=== PATIENT | male | born 1960 | race African-American/Black ===

== ENCOUNTER 2017-12-10 20:10 | Emergency (ER) | payer MEDICARE, MEDICAID ==
[~2017-12-10] VITALS: Ht 188 cm; Wt 86.0 kg
[2017-12-10 21:41] VITALS: BP 116/73
== END 2017-12-11 | disposition left against medical advice (07) ==
LOC: ER 22:24
DX: R10.9 Unspecified abdominal pain (principal); Z53.21 Procedure and treatment not carried out due to patient leaving prior to being seen by health care provider

== ENCOUNTER 2017-12-11 03:45 | Emergency (ER) | payer MEDICARE, MEDICAID ==
[~2017-12-11] VITALS: Ht 188 cm; Wt 86.0 kg
[2017-12-11] MEDS ORDERED: KETOROLAC 30MG/ML VIAL IV ONE (07:15)
[2017-12-11 07:29] LABS: BASOPHILS % 1.2 % (0.0-2.0); EOSINOPHILS % 5.5 % (0.0-5.0); HEMATOCRIT. 41.3 % (42.0-52.0); HEMOGLOBIN. 13.8 g/dL (14.0-18.0); LYMPHOCYTES % 48.9 % (20.0-50.0); MEAN CORPUSCULAR HEMOGLOBIN 29.7 pg (28.0-32.0); MEAN CORPUSCULAR VOLUME 89.2 fL (80.0-94.0); MEAN PLATELET VOLUME 8.6 fl (7.4-10.4); NEUTROPHILS % 32.4 % (40.0-76.0); PLATELET 216 x1000/uL (130-400); RED BLOOD CELL COUNT 4.63 mill/uL (4.7-6.1); RED CELL DISTRIBUTION WIDTH 16.6 % (11.6-14.6)
[2017-12-11 07:31] LABS: CHLORIDE 107 mEq/L (98-107)
[2017-12-11 07:37] LABS: ETHANOL BLOOD 104 mg/dL
[2017-12-11 08:17] LABS: CLARITY URINE CLEAR (CLEAR); COLOR URINE YELLOW (YELLOW); KETONES URINE NEGATIVE (NEGATIVE); LEUKOCYTE ESTERASE URINE NEGATIVE (NEGATIVE); NITRITE URINE NEGATIVE (NEGATIVE); OCCULT BLOOD URINE NEGATIVE (NEGATIVE); PH URINE 6.5 (4.5-8.0); PROTEIN URINE NEGATIVE (NEGATIVE); SPECIFIC GRAVITY URINE 1.013 (1.005-1.030); UROBILINOGEN URINE 0.2 E.U./dL (0.2-1.0)
[2017-12-11 08:32] LABS: *AMPHETAMINES SCREEN URINE NEGATIVE (NEGATIVE)
[2017-12-11 08:33] LABS: *BARBITURATES SCREEN URINE NEGATIVE (NEGATIVE); *BENZODIAZEPINES SCREEN URINE NEGATIVE (NEGATIVE); *COCAINE SCREEN URINE NEGATIVE (NEGATIVE)
[2017-12-11 08:34] LABS: METHADONE URINE SCREEN NEGATIVE (NEGATIVE); OPIATES URINE SCREEN NEGATIVE (NEGATIVE); PHENCYCLIDINE URINE SCREEN NEGATIVE (NEGATIVE)
[2017-12-11 08:50] LABS: CANNABINOID URINE SCREEN NEGATIVE (NEGATIVE)
[2017-12-11 09:13] VITALS: BP 118/91
[2017-12-11] MEDS ORDERED: IOHEXOL-300 100 ML BOTTLE ONE (09:36)
== END 2017-12-11 10:25 | disposition home or self-care (01) ==
LOC: ER 03:45
DX: R10.9 Unspecified abdominal pain (principal); M79.1 Myalgia; I25.2 Old myocardial infarction
CPT/HCPCS: 36415; 74177; 80053; 80305; 81003; 83690; 85025; 96374; 99285; G0482; J1885; Q9967

== ENCOUNTER 2018-01-01 02:27 | Emergency (ER) | payer MEDICARE, MEDICAID ==
[~2018-01-01] VITALS: Ht 188 cm; Wt 89.0 kg
[2018-01-01] MEDS ORDERED: ACETAMINOPHEN 325MG TABLET PO ONE (08:00)
[2018-01-01] MEDS ORDERED: DIAZEPAM 2 MG TABLET PO ONE (08:00)
[2018-01-01 08:55] VITALS: BP 129/94
== END 2018-01-01 09:00 | disposition home or self-care (01) ==
LOC: ER 02:27
DX: M54.41 Lumbago with sciatica, right side (principal); I25.2 Old myocardial infarction
CPT/HCPCS: 99283

== ENCOUNTER 2019-07-01 16:01 | Emergency (ER) | payer MEDICARE, MEDICAID ==
[~2019-07-01] VITALS: Ht 182.9 cm; Wt 82.0 kg
[2019-07-01] MEDS ORDERED: FUROSEMIDE 40MG/4ML VIAL IV ONE (17:15)
[2019-07-01] MEDS ORDERED: ASPIRIN 81MG TABLET PO ONE (17:15)
[2019-07-01] MEDS ORDERED: NITROGLYCERIN OINT 1GM/INCH UDPKT TD ONE (17:15)
[2019-07-01 17:28] LABS: BASOPHILS % 0.5 % (0.0-2.0); EOSINOPHILS % 0.2 % (0.0-5.0); HEMATOCRIT. 33.6 % (42.0-52.0); HEMOGLOBIN. 10.7 g/dL (14.0-18.0); LYMPHOCYTES % 17.5 % (20.0-50.0); MEAN CORPUSCULAR HEMOGLOBIN 26.4 pg (28.0-32.0); MEAN CORPUSCULAR VOLUME 82.8 fL (80.0-94.0); MEAN PLATELET VOLUME 10.8 fl (7.4-10.4); MONOCYTES % 11.5 % (2.0-8.0); NEUTROPHILS % 70.3 % (40.0-76.0); PLATELET 154 x1000/uL (130-400); RED BLOOD CELL COUNT 4.06 mill/uL (4.7-6.1); RED CELL DISTRIBUTION WIDTH 19.3 % (11.6-14.6)
[2019-07-01 17:39] LABS: CHLORIDE 107 mEq/L (98-107)
[2019-07-01 17:43] LABS: D-DIMER 6.65 mg/L FEU (<0.50); INR 1.8; PARTIAL THROMBOPLASTIN TIME 28.1 sec (23.4-31.0)
[2019-07-01] MEDS ORDERED: IOHEXOL-350 100 ML BOTTLE ONE (22:18)
[2019-07-02 02:32] VITALS: BP 130/93
== END 2019-07-02 02:53 | disposition short-term general hospital (02) ==
LOC: ER 16:39 → CANBEDREQ 07-02 01:23 → ER 07-02 02:53
DX: R06.02 Shortness of breath (principal); R06.09 Other forms of dyspnea; I50.9 Heart failure, unspecified; I25.2 Old myocardial infarction; I25.10 Atherosclerotic heart disease of native coronary artery without angina pectoris; Z98.890 Other specified postprocedural states; Z98.61 Coronary angioplasty status
CPT/HCPCS: 36415; 71045; 71275; 74177; 80053; 83880; 84484; 85025; 85379; 85610; 85730; 93005; 96374; 99284; J1940; Q9967

== ENCOUNTER 2021-01-05 10:39 | Emergency (ER) | payer OTHER, MEDICAID ==
[~2021-01-05] VITALS: Ht 185.4 cm; Wt 90.0 kg
[2021-01-05] MEDS ORDERED: HYDROCODONE/ACETAMINOPHEN 5/325MG TABLET PO STA (11:18)
[2021-01-05 11:28] VITALS: BP 100/68
[2021-01-05] MEDS ORDERED: BACITRACIN ZINC OINT UDPKT TOP NR (12:45)
[2021-01-05] MEDS ORDERED: T3 PO (12:53)
[2021-01-05] MEDS ORDERED: BO1 TP (12:55)
== END 2021-01-05 14:07 | disposition home or self-care (01) ==
LOC: ER 10:39
DX: S16.1XXA Strain of muscle, fascia and tendon at neck level, initial encounter (principal); S39.012A Strain of muscle, fascia and tendon of lower back, initial encounter; I25.2 Old myocardial infarction; V49.49XA Driver injured in collision with other motor vehicles in traffic accident, initial encounter; Y93.89 Activity, other specified; Y92.89 Other specified places as the place of occurrence of the external cause; Y99.8 Other external cause status; Z98.890 Other specified postprocedural states
CPT/HCPCS: 72110; 99283